=== PATIENT | female | born 1950 | race Caucasian/White ===

== ENCOUNTER 2022-04-08 15:42 | Emergency (ER) | payer OTHER ==
[~2022-04-08] VITALS: Ht 154.9 cm; Wt 60.8 kg
--- NOTE | 2022-04-08 15:42 | NUR ---
TO ER BED 4, BIB [facility] 78 FROM HOME,C/O PAIN UNDER HER LEFT BREAST 30 MINUTES [employer], AAOX3, BREATHING EVEN AND NON LABORED, CONNECTED TO MONITOR
[2022-04-08 16:32] LABS: BASOPHILS % (AUTO) 0.6 % (0.0-2.0); EOSINOPHILS % (AUTO) 2.7 % (0.0-6.0); HEMATOCRIT 35 % (33-45); HEMOGLOBIN 11.5 g/dL (11.5-14.8); LYMPHOCYTES # (AUTO) 2.2 K/uL (0.8-4.8); MEAN CORPUSCULAR HGB CONC 33 g/dl (31.0-36.0); MEAN CORPUSCULAR VOLUME 86 fL (82-100); MONOCYTES # (AUTO) 0.5 K/uL (0.1-1.30); NEUTROPHILS # (AUTO) 4.4 K/uL (1.8-8.9); NEUTROPHILS % (AUTO) 59.7 % (43.0-81.0); PLATELET COUNT (AUTO) 329 K/uL (150-450); RED BLOOD CELL COUNT(AUTO) 3.99 MIL/uL (4.0-5.2); WHITE BLOOD COUNT (AUTO) 7.4 K/uL (4.3-11.0)
[2022-04-08 16:35] LABS: CALCIUM, SERUM 9.3 mg/dL (8.5-10.1); CARBON DIOXIDE 32 mmol/L (21-32); CHLORIDE 99 mmol/L (98-107); CREATININE 1.4 mg/dL (0.6-1.3); GLUCOSE 97 mg/dL (74-106); SODIUM SERUM 139 mmol/L (136-145); UREA NITROGEN, BLOOD 22 mg/dL (7-18)
--- NOTE | 2022-04-08 18:03 | NUR ---
[facility] PAGED.
--- NOTE | 2022-04-08 18:20 | NUR ---
ON THE PHONE WITH DR. GRANT FROM [place].
--- NOTE | 2022-04-08 18:36 | NUR ---
COVID SWAB DONE AND SENT TO LAB
[2022-04-08 19:13] VITALS: BP 162/84
--- NOTE | 2022-04-08 19:40 | NUR ---
CALL FROM [place] [facility]. PT ACCEPTED TO [facility] ER BY DR ONTIVEROS. [facility] ETA 2030
--- NOTE | 2022-04-08 20:27 | NUR ---
# for report [phone]
--- NOTE | 2022-04-08 20:54 | NUR ---
REPORT GIVEN TO [facility] TO [facility] RN AND EMT. PT TRANSFERED.
== END 2022-04-08 20:55 | disposition short-term general hospital (02) ==
LOC: ER 15:44
DX: R07.9 Chest pain, unspecified (principal); Z20.822 Contact with and (suspected) exposure to COVID-19; Z90.49 Acquired absence of other specified parts of digestive tract; I10 Essential (primary) hypertension; Z90.710 Acquired absence of both cervix and uterus; Z86.16 Personal history of COVID-19
CPT/HCPCS: 99285; 71045; 87426; 93005; 85025; 80048; 36415; 84484 ×2; C9803